=== PATIENT | male | born 1935 ===

== ENCOUNTER 2017-09-23 11:16 | Inpatient (IN) | payer OTHER ==
--- NOTE | 2017-09-23 12:21 | CARD ---
APPROVED REPORT EKG Measurement Heart [id number] <Conclusion> Sinus rhythm with premature supraventricular complexes Septal infarct, age undetermined Abnormal ECG
[2017-09-23 12:56] LABS: BASO % 0.5 % (0.0-2.0); EOS % 0.4 % (0.0-4.0); HEMOGLOBIN 13.6 g/dL (12.0-18.0); LYMPH # 0.9 K/uL (1.0-4.3); LYMPH % 10.4 % (20.0-40.0); MEAN CELL VOLUME 91.6 fl (80.0-94.0); MEAN CORPUSCULAR HEMOGLOBIN 30.7 pg (27.0-31.0); MEAN CORPUSCULAR HGB CONC 33.5 g/dL (33.0-37.0); MEAN PLATELET VOLUME 8.9 fl (7.2-11.7); MONO # 0.4 K/uL (0.0-0.8); MONO % 4.4 % (0.0-10.0); NEUT # 7.7 K/uL (1.8-7.0); NEUT % 84.3 % (50.0-75.0); RBC 4.43 Mil/uL (4.40-5.90); WHITE BLOOD COUNT 9.1 K/uL (4.8-10.8)
[2017-09-23 13:05] LABS: PARTIAL THROMBOPLASTIN TIME 27.5 Seconds (25.6-37.1)
--- NOTE | 2017-09-23 13:15 | RAD ---
PROCEDURE: CHEST RADIOGRAPH, 1 VIEW HISTORY: chest pain COMPARISON: None available. FINDINGS: LUNGS: Distended air-filled stomach with marked elevation left hemidiaphragm. There is left lower lobe atelectasis and or scarring changes. Mild right basilar atelectasis and/or scar. PLEURA: Questionable tiny left effusion. No evidence of pneumothorax. CARDIOVASCULAR: Heart appears enlarged. Aorta ectatic and uncoiled. OSSEOUS STRUCTURES: No significant abnormalities. VISUALIZED UPPER ABDOMEN: Normal. OTHER FINDINGS: None. IMPRESSION: Distended air-filled stomach with marked elevation left hemidiaphragm. There is left lower lobe atelectasis and or scarring changes. Mild right basilar atelectasis and/or scar.
[2017-09-23 13:42] LABS: CALCIUM 9.5 mg/dL (8.4-10.2)
[2017-09-23 14:01] LABS: TROPONIN I 0.266 ng/mL (0.00-0.120)
[2017-09-23] MEDS ORDERED: Iodixanol 320 MG/ML 100 ML BOTTLE IV ONE (15:14)
[2017-09-23] MEDS ORDERED: Sodium Chloride 0.9% 50 ML IV ONE (15:14)
--- NOTE | 2017-09-23 16:13 | CT ---
PROCEDURE: CT Chest with contrast (Pulmonary Angiogram) HISTORY: chest pain COMPARISON: None available. TECHNIQUE: Axial computed tomography images were obtained of the chest in the pulmonary arterial phase of enhancement. Coronal and sagittal reformatted images were created and reviewed. Intravenous contrast dose: Visipaque 320 Radiation dose: Total exam DLP = , 70 cc mGy-cm. This CT exam was performed using one or more of the following dose reduction techniques: Automated exposure control, adjustment of the mA and/or kV according to patient size, and/or use of iterative reconstruction technique. FINDINGS: PULMONARY ARTERIES: Unremarkable. No pulmonary embolism. AORTA: No acute findings. No thoracic aortic aneurysm. LUNGS: Questionable 5 mm nodule right upper lobe image 37 series 5. Restrained motion degrades imaging the pulmonary parenchyma significantly bilaterally. Linear atelectasis or fibrosis seen at the bilateral lung bases without alveolitis or central airway lesion grossly evident. PLEURAL SPACES: Unremarkable. No effusion or pneuomothorax. HEART: Stable cardiomegaly. No significant pericardial effusion. LYMPH NODES: No lymphadenopathy. BONES, CHEST WALL: Unremarkable. No fracture or destructive lesion OTHER FINDINGS: Cholelithiasis reiterated. Stable benign left adrenal adenoma 2.3 cm and -8 Hounsfield units. Stable right renal cyst. IMPRESSION: 1. No pulmonary embolus identified. 2. 5 mm noncalcified nodule suspected at the right upper lobe for which follow-up CT of the chest advised using low dose CT technique in 1 year. Lung rads 2. 3. Linear atelectasis bilateral lung bases versus fibrosis. 4. No acute infiltrate bilaterally. 5. Stable cardiomegaly. 6. Stable upper abdominal findings including cholelithiasis, benign left adrenal adenoma and stable right renal cyst.
[2017-09-23] MEDS ORDERED: Enoxaparin 80 mg Syringe SC STA (16:38)
--- NOTE | 2017-09-23 17:24 | CP.PCM.HP ---
History of Present Illness - History of Present Illness History of Present Illness: 82 yo male with history of DM2 and HTN brought in because of mid-sternal chest pain lasting for 2 hrs only relieved with IV Morphine when patient arrived in the ER. Patient recently arrived from [place] 2 weeks ago. Denied SOB, nausea, vomiting or fever/chills. Present on Admission - Present on Admission Any Indicators Present on Admission: No History of DVT/PE: No History of Uncontrolled Diabetes: No Urinary Catheter: No Decubitus Ulcer Present: No Review of Systems - Review of Systems All systems: reviewed and no additional remarkable complaints except (aside from those mentioned above, 12 points system review were negative by me) Past Patient History - Tetanus Immunizations Tetanus Immunization: Unknown - Past Social History Smoking Status: Never Smoked Chewing Tobacco Use: No Cigar Use: No Alcohol: None Drugs: Denies Home Situation {Lives}: With Family - CARDIAC Hx Hypertension: Yes - PULMONARY Hx Respiratory Disorders: No - NEUROLOGICAL Hx Neurological Disorder: No - HEENT Hx HEENT Problems: No - RENAL Hx Chronic Kidney Disease: No - ENDOCRINE/METABOLIC Hx Endocrine Disorders: Yes Hx Diabetes Mellitus Type 2: Yes - HEMATOLOGICAL/ONCOLOGICAL Hx Blood Disorders: No - INTEGUMENTARY Hx Dermatological Problems: No - MUSCULOSKELETAL/RHEUMATOLOGICAL Hx Musculoskeletal Disorders: No - GASTROINTESTINAL Hx Gastrointestinal Disorders: No - GENITOURINARY/GYNECOLOGICAL Hx Genitourinary Disorders: Yes - PSYCHIATRIC Hx Substance Use: No - SURGICAL HISTORY Hx Surgeries: Yes Hx Appendectomy: Yes - ANESTHESIA Hx Anesthesia: No Meds Allergies/Adverse Reactions: Allergies Allergy/AdvReac Type Severity Reaction Status Date / Time No Known Allergies Allergy Verified 09/23/17 11:30 Physical Exam - Constitutional Appears: No Acute Distress - Head Exam Head Exam: ATRAUMATIC - Eye Exam Eye Exam: absent: Scleral icterus - ENT Exam ENT Exam: Mucous Membranes Moist - Neck Exam Neck exam: Negative for: Meningismus - Respiratory Exam Respiratory Exam: absent: Rales, Rhonchi, Wheezes, Respiratory Distress - Cardiovascular Exam Cardiovascular Exam: REGULAR RHYTHM, +S1, +S2 - GI/Abdominal Exam GI & Abdominal Exam: Soft. absent: Tenderness - Rectal Exam Rectal Exam: Deferred - Extremities Exam Extremities exam: Negative for: calf tenderness, pedal edema - Back Exam Back exam: absent: tenderness - Neurological Exam Neurological exam: Alert, Oriented x3 - Psychiatric Exam Psychiatric exam: Normal Affect - Skin Skin Exam: Dry, Intact Results - Vital Signs Recent Vital Signs: Last Vital Signs Temp 98.4 F 09/23/17 11:31 Pulse 68 09/23/17 14:15 Resp 21 09/23/17 14:15 BP 126/69 09/23/17 14:15 Pulse Ox 98 09/23/17 14:15 - Labs Result Diagrams: 09/23/17 12:17 09/23/17 12:17 Labs: Laboratory Results - last 24 hr 09/23/17 09/23/17 09/23/17 12:17 12:17 12:17 WBC 9.1 RBC 4.43 Hgb 13.6 Hct 40.5 MCV 91.6 MCH 30.7 MCHC 33.5 RDW 14.0 Plt Count 206 MPV 8.9 Neut % (Auto) 84.3 H Lymph % (Auto) 10.4 L [place] % (Auto) 4.4 Eos % (Auto) 0.4 Baso % (Auto) 0.5 Neut # (Auto) 7.7 H Lymph # (Auto) 0.9 L [place] # (Auto) 0.4 Eos # (Auto) 0.0 Baso # (Auto) 0.0 PT 11.0 INR 1.0 APTT 27.5 D-Dimer, Quantitative 369 H Sodium 140 Potassium 4.2 Chloride 104 Carbon Dioxide 20 L Anion Gap 20 BUN 21 H Creatinine 1.4 Est GFR ( Amer) 59 Est GFR (Non-Af Amer) 48 Random Glucose 299 H Calcium 9.5 Troponin I 0.2660 H* Assessment & Plan - Assessment and Plan (Free Text) Assessment: 82 yo male with history of DM2 and HTN brought in because of mid-sternal chest pain lasting for 2 hrs only relieved with IV Morphine when patient arrived in the ER. Patient recently arrived from [place] 2 weeks ago. Denied SOB, nausea, vomiting or fever/chills. 1. NSTEMI EKG: septal infarct, undetermined age Troponins: 0.2660 serial Troponins q 8hrs x 2 Nitropaste 1 inch on CW q 6hrs Morphine 2mg IV q 4hrs prn for pain ASA 325mg PO Coreg 3.125mg PO q 12hrs Lipitor 40mg PO daily Lovenox 80mg SC q 12hrs 2. DM2 accuchek ACHS with Lispro coverage HgA1C, BMP in am diabetic diet 3. HTN BP stable on Coreg 3.125mg PO q 12hrs
--- NOTE | 2017-09-23 17:53 | ED PDOC ---
HPI: Chest Pain Time Seen by Provider: 09/23/17 11:34 Chief Complaint (Nursing): Chest Pain Chief Complaint (Provider): Chest Pain History Per: Patient History/Exam Limitations: no limitations Onset/Duration Of Symptoms: Days (x2 weeks), Intermittent Episodes Current Symptoms Are (Timing): Intermittent Episodes Additional Complaint(s): 82 year old male presents to the ED complaining of intermittent anterior chest pain onset two weeks ago associated with difficulty breathing on exertion. Of note, patient states he came from [place] for the first time two weeks ago as well. He reports that the intermittent episodes are sometimes related to food and sometimes related to exertion. Otherwise, denies any other complaints, fever , or cough. PMD: none provided Past Medical History Reviewed: Historical Data, Nursing Documentation, Vital Signs Vital Signs: Last Vital Signs Temp 98.2 F 09/24/17 08:00 Pulse 60 09/24/17 09:00 Resp 18 09/24/17 08:00 BP 105/63 09/24/17 08:58 Pulse Ox 98 09/24/17 08:00 - Medical History PMH: Benign Prostatic Hyperplasia, Diabetes, HTN Denies: Chronic Kidney Disease - Surgical History Surgical History: Appendectomy - Family History Family History: States: Unknown Family Hx - Social History Current smoker - smoking cessation education provided: No Alcohol: Social Drugs: Denies - Home Medications Home Medications: Ambulatory Orders Medication Instructions Recorded Losartan [Cozaar] 50 mg PO BID 09/23/17 metFORMIN [glucOPHAGE] 850 mg PO TID 09/23/17 - Allergies Allergies/Adverse Reactions: Allergies Allergy/AdvReac Type Severity Reaction Status Date / Time No Known Allergies Allergy Verified 09/23/17 11:30 CAROLINE Risk Score for UA/NSTEMI - CAROLINE Risk Score Age > 64: YES 3 or more CAD Risk Factors: YES Known CAD (Stenosis greater than 50%): NO Aspirin use in past 7 days: NO Severe Angina: NO EKG ST changes greater than 0.5mm: NO Positive Cardiac Marker: NO CAROLINE Score: 2 Risk %: 8% Wells Criteria for PE - Wells Criteria for Pulmonary Embolism Clinical Signs and Symptoms of DVT: No P.E is #1 Diagnosis, or Equally Likely: No Heart Rate >100: No Immobilization at least 3 days;Surgery previous 4 weeks: No Previous, objectively diagnosed PE or DVT: No Hemoptysis: No Malignancy w/treatment within 6 months, or palliative: No Total Score: 0 Review of Systems ROS Statement: Except As Marked, All Systems Reviewed And Found Negative Constitutional: Negative for: Fever Cardiovascular: Positive for: Chest Pain (anterior, intermittent) Respiratory: Positive for: SOB with Exertion. Negative for: Cough Physical Exam - Reviewed Nursing Documentation Reviewed: Yes Vital Signs Reviewed: Yes - Physical Exam Appears: Positive for: No Acute Distress Head Exam: Positive for: ATRAUMATIC, NORMOCEPHALIC Skin: Positive for: Normal Color, Warm, Dry Eye Exam: Positive for: Normal appearance, EOMI, PERRL ENT: Positive for: Normal ENT Inspection Neck: Positive for: Normal, Painless ROM, Supple Cardiovascular/Chest: Positive for: Regular Rate, Rhythm, Chest Non Tender. Negative for: Murmur Respiratory: Positive for: Normal Breath Sounds. Negative for: Accessory Muscle Use, Wheezing, Respiratory Distress Gastrointestinal/Abdominal: Positive for: Normal Exam, Soft. Negative for: Tenderness Back: Positive for: Normal Inspection. Negative for: L CVA Tenderness, R CVA Tenderness, Vertebral Tenderness Extremity: Positive for: Normal ROM Neurologic/Psych: Positive for: Alert, Oriented (x3). Negative for: Motor/ Sensory Deficits - Laboratory Results Result Diagrams: 09/24/17 04:20 09/24/17 04:20 - ECG ECG: Positive for: Interpreted By Me, Viewed By Me ECG Rhythm: Positive for: Sinus Rhythm (at 66). Negative for: Normal QRS, ST/T Changes Interpretation Of ECG: PACs are present O2 Sat by Pulse Oximetry: 95 (RA) Pulse Ox Interpretation: Normal Medical Decision Making Medical Decision Making: Initial Impression: chest pain Ddx: Acute coronary syndrome, pulmonary embolism Time: 12:17 Initial Plan: --Angio Chest PE CT --EKG --BMP --Trop I --CBC with differential --D Dimer --PT / PTT --CXR --Aspirin 325mg PO --Lovenox 80mg SC 16:[address] Chowdhury recommends lovenox. Patient will be admitted. Scribe Attestation: Documented by Loraine Fan, acting as a scribe for Dorita Saravia MD. Provider Scribe Attestation: All medical entries made by the Scribe were at my direction and personally dictated by me. I have reviewed the chart and agree that the record accurately reflects my personal performance of the history, physical exam, medical decision making, and the department course for this patient. I have also personally directed, reviewed, and agree with the discharge instructions and disposition. Disposition - Clinical Impression Clinical Impression: Chest pain, NSTEMI (non-ST elevated myocardial infarction) - Patient ED Disposition Is Patient to be Admitted: Yes Discussed With : Chapito Theodore Doctor Will See Patient In The: ED Counseled Patient/Family Regarding: Studies Performed, Diagnosis - Disposition Disposition Time: 16:00 Condition: FAIR - Pt Status Changed To: Hospital Disposition Of: Inpatient - Admit Certification Admit to Inpatient:: After my assessment, the patient will require hospitalization for at least two midnights. This is because of the severity of symptoms shown, intensity of services needed, and/or the medical risk in this patient being treated as an outpatient. - POA Present On Arrival: None Core Measure Indicators: Chest Pain
[2017-09-23] MEDS ORDERED: Nitroglycerin 2% Ointment Foilpak UD TOP STA (21:28)
[2017-09-23] MEDS ORDERED: Nitroglycerin 2% Ointment Foilpak UD TOP ONE (21:33)
[2017-09-23] MEDS: Insulin Lispro (humaLOG) 100 Units/ml Inj SC SCH (22:34)
[2017-09-23] MEDS: Enoxaparin 80 mg Syringe SC SCH (22:36)
[2017-09-24] MEDS: Enoxaparin 80 mg Syringe SC SCH (04:30)
[2017-09-24 05:33] LABS: BASO % 0.6 % (0.0-2.0); EOS # 0.1 K/uL (0.0-0.7); EOS % 1.3 % (0.0-4.0); HEMOGLOBIN 12.2 g/dL (12.0-18.0); LYMPH # 1.6 K/uL (1.0-4.3); LYMPH % 19.2 % (20.0-40.0); MEAN CELL VOLUME 90.7 fl (80.0-94.0); MEAN CORPUSCULAR HGB CONC 34.2 g/dL (33.0-37.0); MEAN PLATELET VOLUME 8.8 fl (7.2-11.7); MONO # 0.7 K/uL (0.0-0.8); MONO % 8.6 % (0.0-10.0); NEUT # 5.7 K/uL (1.8-7.0); NEUT % 70.3 % (50.0-75.0); NRBC % 0.1 % (0.0-0.0); RBC 3.93 Mil/uL (4.40-5.90); RED CELL DISTRIBUTION WIDTH 13.9 % (11.5-14.5); WHITE BLOOD COUNT 8.2 K/uL (4.8-10.8)
[2017-09-24 05:52] LABS: LDL CHOLESTEROL 94 mg/dL (0-129)
[2017-09-24 06:28] LABS: BLOOD UREA NITROGEN 19 mg/dl (9-20); GFR AFRICAN-AMERICAN > 60; GFR NON-AFRICAN AMERICAN 53
[2017-09-24 06:29] LABS: CALCIUM 9.1 mg/dL (8.4-10.2); HDL CHOLESTEROL 28 MG/DL (30-70)
[2017-09-24] MEDS: Insulin Lispro (humaLOG) 100 Units/ml Inj SC SCH ×2 (06:45→22:32)
[2017-09-24] MEDS: Pantoprazole 40 mg EC Tab PO SCH (08:59)
--- NOTE | 2017-09-24 11:02 | CARD ---
APPROVED REPORT EKG Measurement Heart [id number] <Conclusion> Normal sinus rhythm Low voltage QRS Cannot rule out Anteroseptal infarct, age undetermined T wave abnormality, consider lateral ischemia Abnormal ECG
--- NOTE | 2017-09-24 13:46 | CP.PCM.PN ---
Subjective - Date & Time of Evaluation Date of Evaluation: 09/24/17 Time of Evaluation: 11:00 - Subjective Subjective: Patient was seen and examined at bedside. He is complaining of 1-3 chest pain off and on again. The case was discussed with Dr. Jimenez this morning by myself. Overnight had a significant troponin elevation and is to be transferred to [facility] under Dr. Jimenez. Other than his chest pain, he denies any new problems. No SOB, headache, weakness, n/v/d. Objective - Vital Signs/Intake and Output Vital Signs (last 24 hours): Temp Pulse Resp BP Pulse Ox 98.2 F 60 18 105/63 98 09/24/17 08:00 09/24/17 09:00 09/24/17 08:00 09/24/17 08:58 09/24/17 08:00 - Medications Medications: Current Medications Aspirin (Aspirin) 325 mg PO DAILY [facility] Last Admin: 09/24/17 09:04 Dose: 325 mg Atorvastatin Calcium (Lipitor) 40 mg PO DAILY [facility] Last Admin: 09/24/17 08:59 Dose: 40 mg Carvedilol (Coreg) 3.125 mg PO Q12 [facility] Last Admin: 09/24/17 08:58 Dose: 3.125 mg Clopidogrel Bisulfate (Plavix) 75 mg PO DAILY [facility] Last Admin: 09/24/17 10:32 Dose: 75 mg Enoxaparin Sodium (Lovenox) 80 mg SC Q12@0500,1700 [facility] PRN Reason: Protocol Insulin Human Lispro (Humalog) 0 units SC ACHS [facility] PRN Reason: Protocol Last Admin: 09/24/17 06:45 Dose: 2 units Morphine Sulfate (Morphine) 2 mg IVP Q6 PRN PRN Reason: chest pain Nitroglycerin (Nitrostat Sl Tab) 0.4 mg SL Q5M PRN PRN Reason: chest pain Pantoprazole Sodium (Protonix Ec Tab) 40 mg PO DAILY [facility] Last Admin: 09/24/17 08:59 Dose: 40 mg - Labs Labs: 09/24/17 04:20 09/24/17 04:20 PT 11.0 Seconds (9.8-13.1) 09/23/17 12:17 INR 1.0 (0.9-1.2) 06/26/18 12:17 APTT 27.5 Seconds (25.6-37.1) 09/23/17 12:17 - Additional Findings Additional findings: Physical exam: Constitutional- cooperative, awake, alert Head- NCAT, PERRL Eye- PERRL, EOMI ENT- normal exam, MMM. Neck- normal inspection, supple, no JVD Respiratory- CTAB, no wheezes rales rhonchi Cardiovascular- RRR, +S1, +S2 no MRG GI/Abdominal- normal bowel sounds, soft, no mass, no hsm Skin- warm, dry Extremities Exam- normal capillary refill, normal inspection Neurological Exam- alert, awake, oriented Psych- normal mood, normal affect Assessment and Plan - Assessment and Plan (Free Text) Plan: 82 yo male with history of DM2 and HTN brought in because of mid-sternal chest pain lasting for 2 hrs only relieved with IV Morphine when patient arrived in the ER. Patient recently arrived from [place] 2 weeks ago. Denied SOB, nausea, vomiting or fever/chills. 1. NSTEMI, with significant troponin elevation and EKG changes (T wave inversions in lateral leads) EKG: septal infarct, undetermined age. Repeat EKG shows T wave inversions in lateral leads Cardiology consultation with Dr. Jimenez appreciated. Patient being transferred to [facility] today for cardiac catheterization. Troponins: 0.2660-> 90.0->49.6->32.9 Nitropaste 1 inch on CW q 6hrs Morphine 2mg IV q 4hrs prn for pain ASA 325mg PO Plavix 75 mg po daily Coreg 3.125mg PO q 12hrs Lipitor 40mg PO daily Lovenox 80mg SC q 12hrs 2. DM2 accuchek ACHS with Lispro coverage HgA1C, BMP in am diabetic diet 3. HTN BP stable on Coreg 3.125mg PO q 12hrs
[2017-09-24] MEDS ORDERED: Enoxaparin 80 mg Syringe SC SCH (17:00)
[2017-09-25] MEDS: Insulin Lispro (humaLOG) 100 Units/ml Inj SC SCH ×2 (06:53→12:49)
[2017-09-25 08:17] VITALS: O2SAT 95
[2017-09-25] MEDS: Pantoprazole 40 mg EC Tab PO SCH (09:10)
--- NOTE | 2017-09-25 10:46 | CP.PCM.PN ---
Objective - Vital Signs/Intake and Output Vital Signs (last 24 hours): Temp Pulse Resp BP Pulse Ox 98.2 F 66 18 107/64 95 09/25/17 09:00 09/25/17 09:11 09/25/17 09:00 09/25/17 09:11 09/25/17 09:00 - Medications Medications: Current Medications Aspirin (Aspirin) 325 mg PO DAILY [facility] Last Admin: 09/25/17 09:13 Dose: 325 mg Atorvastatin Calcium (Lipitor) 40 mg PO DAILY [facility] Last Admin: 09/25/17 09:10 Dose: 40 mg Carvedilol (Coreg) 3.125 mg PO Q12 [facility] Last Admin: 09/25/17 09:11 Dose: 3.125 mg Clopidogrel Bisulfate (Plavix) 75 mg PO DAILY [facility] Last Admin: 09/25/17 09:10 Dose: 75 mg Enoxaparin Sodium (Lovenox) 80 mg SC Q12@0500,1700 [facility] PRN Reason: Protocol Last Admin: 09/25/17 05:00 Dose: Not Given Insulin Human Lispro (Humalog) 0 units SC ACHS [facility] PRN Reason: Protocol Last Admin: 09/25/17 06:53 Dose: Not Given Morphine Sulfate (Morphine) 2 mg IVP Q6 PRN PRN Reason: chest pain Nitroglycerin (Nitrostat Sl Tab) 0.4 mg SL Q5M PRN PRN Reason: chest pain Pantoprazole Sodium (Protonix Ec Tab) 40 mg PO DAILY [facility] Last Admin: 09/25/17 09:10 Dose: 40 mg - Labs Labs: 09/24/17 04:20 09/24/17 04:20 PT 11.0 Seconds (9.8-13.1) 09/23/17 12:17 INR 1.0 (0.9-1.2) 09/23/17 12:17 APTT 27.5 Seconds (25.6-37.1) 09/23/17 12:17
--- NOTE | 2017-09-25 11:38 | CP.PCM.DIS ---
Provider - Provider Date of Admission: 09/23/17 16:29 Attending physician: Chapito Theodore MD Time Spent in preparation of Discharge (in minutes): 30 Diagnosis - Discharge Diagnosis (1) Chest pain Status: Resolved (2) NSTEMI (non-ST elevated myocardial infarction) Status: Acute (3) S/P drug eluting coronary stent placement Status: Acute (4) Coronary artery disease Status: Acute Hospital Course - Lab Results Lab Results: Most Recent Lab Values WBC 8.2 K/uL (4.8-10.8) 09/24/17 04:20 RBC 3.93 Mil/uL (4.40-5.90) L 09/24/17 04:20 Hgb 12.2 g/dL (12.0-18.0) 09/24/17 04:20 Hct 35.6 % (35.0-51.0) 09/24/17 04:20 MCV 90.7 fl (80.0-94.0) 09/24/17 04:20 MCH 31.0 pg (27.0-31.0) 09/24/17 04:20 MCHC 34.2 g/dL (33.0-37.0) 09/24/17 04:20 RDW 13.9 % (11.5-14.5) 09/24/17 04:20 Plt Count 193 K/uL (130-400) 09/24/17 04:20 MPV 8.8 fl (7.2-11.7) 09/24/17 04:20 Neut % (Auto) 70.3 % (50.0-75.0) 09/24/17 04:20 Lymph % (Auto) 19.2 % (20.0-40.0) L 09/24/17 04:20 [place] % (Auto) 8.6 % (0.0-10.0) 09/24/17 04:20 Eos % (Auto) 1.3 % (0.0-4.0) 09/24/17 04:20 Baso % (Auto) 0.6 % (0.0-2.0) 09/24/17 04:20 Neut # (Auto) 5.7 K/uL (1.8-7.0) 09/24/17 04:20 Lymph # (Auto) 1.6 K/uL (1.0-4.3) 09/24/17 04:20 [place] # (Auto) 0.7 K/uL (0.0-0.8) 09/24/17 04:20 Eos # (Auto) 0.1 K/uL (0.0-0.7) 09/24/17 04:20 Baso # (Auto) 0.0 K/uL (0.0-0.2) 09/24/17 04:20 PT 11.0 Seconds (9.8-13.1) 09/23/17 12:17 INR 1.0 (0.9-1.2) 09/23/17 12:17 APTT 27.5 Seconds (25.6-37.1) 09/23/17 12:17 D-Dimer, Quantitative 369 ng/mlDDU (0-230) H 09/23/17 12:17 Sodium 140 mmol/l (132-148) 09/24/17 04:20 Potassium 4.8 MMOL/L (3.6-5.0) 09/24/17 04:20 Chloride 103 mmol/L (98-107) 09/24/17 04:20 Carbon Dioxide 27 mmol/L (22-30) 09/24/17 04:20 Anion Gap 15 (10-20) 09/24/17 04:20 BUN 19 mg/dl (9-20) 09/24/17 04:20 Creatinine 1.3 mg/dl (0.8-1.5) 09/24/17 04:20 Est GFR ( Amer) > 60 09/24/17 04:20 Est GFR (Non-Af Amer) 53 09/24/17 04:20 POC Glucose (mg/dL) 244 mg/dL (65-110) H 09/25/17 11:07 Random Glucose 149 mg/dL (75-110) H 09/24/17 04:20 Hemoglobin A1c 8.2 % (4.2-6.5) H 09/24/17 04:20 Calcium 9.1 mg/dL (8.4-10.2) 09/24/17 04:20 Troponin I 32.9000 ng/mL (0.00-0.120) H* 09/24/17 10:21 Triglycerides 153 mg/DL (0-149) H 09/24/17 04:20 Cholesterol 154 mg/dL (0-199) 09/24/17 04:20 LDL Cholesterol Direct 94 mg/dL (0-129) 09/24/17 04:20 HDL Cholesterol 28 MG/DL (30-70) L 09/24/17 04:20 TSH 3rd Generation 2.02 mIU/ML (0.46-4.68) 09/24/17 04:20 - Hospital Course Hospital Course: 82 year old male who recently come from [place] 2 weeks ago with pmhx of DMII and HTN presents to the ED on 09/23/17 with complaining of intermittent anterior chest pain onset two weeks ago associated with difficulty breathing on exertion. He reports that the intermittent episodes are sometimes related to food and sometimes related to exertion. Otherwise, denies any other complaints, fever, or cough. Pt was admitted on 09/23/17 for evaluation of chest pain. Initial EKG showed septal infarct, undetermined age. Repeat EKG shows T wave inversions in lateral leads. Overnight, pt's troponin levels were elevated. Troponin levels were as followed: Troponins: 0.2660-> 90.0->49.6->32.9. 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 Patient was trasferred yesterday at [facility] for cardiac cath. 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 This morning, patient reports feeling well. Denies any chest pain, dyspnea, nausea, vomiting or dizziness. Denies any swelling or redness in the catheter insertion site. Patient is medically stable to discharge home. Advised to follow up at [facility] in 1 week. Medications on discharge. Aspirin 81 mg PO DAILY #30 tab Atorvastatin [Lipitor] 40 mg PO DAILY #30 tab Carvedilol [Coreg] 3.125 mg PO Q12 #60 tab Clopidogrel [Plavix] 75 mg PO DAILY #30 tab metFORMIN [glucOPHAGE] 850 mg PO TID #90 tab Discharge Exam - Head Exam Head Exam: ATRAUMATIC, NORMAL INSPECTION, NORMOCEPHALIC - Eye Exam Eye Exam: EOMI, Normal appearance - ENT Exam ENT Exam: Mucous Membranes Moist, Normal Oropharynx - Respiratory Exam Respiratory Exam: Clear to PA & Lateral, NORMAL BREATHING PATTERN. absent: Rales, Rhonchi, Wheezes - Cardiovascular Exam Cardiovascular Exam: REGULAR RHYTHM, RRR, +S1, +S2 - GI/Abdominal Exam GI & Abdominal Exam: Normal Bowel Sounds, Soft. absent: Tenderness - Extremities Exam Additional comments: Catheter insertion site at the right inguinal area looks C/D/I. No swelling or ecchymosis seen. - Neurological Exam Neurological exam: Alert, Oriented x3 - Psychiatric Exam Psychiatric exam: Normal Affect, Normal Mood - Skin Skin Exam: Normal Color, Warm Discharge Plan - Discharge Medications Prescriptions: Aspirin 81 mg PO DAILY #30 tab Atorvastatin [Lipitor] 40 mg PO DAILY #30 tab Carvedilol [Coreg] 3.125 mg PO Q12 #60 tab Clopidogrel [Plavix] 75 mg PO DAILY #30 tab metFORMIN [glucOPHAGE] 850 mg PO TID #90 tab - Follow Up Plan Condition: FAIR Disposition: HOME/ ROUTINE Additional Instructions: follow up center for [facility] ONE WEEK. follow up Cardiology Clinic also ONE WEEK. Referrals: [facility] [Provider Group]
[2017-09-25 12:27] VITALS: BP 96/63; PULSE 63; RESP 20; TEMP 98.8
[2017-09-25 13:23] LABS: BLOOD UREA NITROGEN 17 mg/dl (9-20); CALCIUM 8.5 mg/dL (8.4-10.2); GFR AFRICAN-AMERICAN > 60; GFR NON-AFRICAN AMERICAN 58
--- NOTE | 2017-09-25 13:56 | CARD ---
APPROVED REPORT EXAM: Two-dimensional and M-mode echocardiogram with Doppler and color Doppler. Other Information Quality : GoodRhythm : NSR INDICATION ICD: WI 2D DIMENSIONS IVSd0.87 (0.7-1.1cm)LVDd4.87 (3.9-5.9cm) LVOT Diameter2.54 (1.8-2.4cm)PWd0.61 (0.7-1.1cm) IVSs1.00 (0.8-1.2cm)LVDs3.67 (2.5-4.0cm) FS (%) 24.6 %PWs1.28 (0.8-1.2cm) M-Mode DIMENSIONS Left Atrium (MM)3.85 (2.5-4.0cm)IVSd1.12 (0.7-1.1cm) Aortic Root3.56 (2.2-3.7cm)LVDd5.79 (4.0-5.6cm) Aortic Cusp Exc.1.94 (1.5-2.0cm)PWd0.71 (0.7-1.1cm) IVSs0.94 cmFS (%) 24 % LVDs4.41 (2.0-3.8cm)PWs1.74 cm Mitral Valve MV E Qkxjripg31.0cm/sMV DECEL [id number] A Rszradox01.9cm/s MV [id number]/A ratio0.9MVA (PHT)3.27cm2 TDI Lateral E' Peak V4.97cm/sMedial E' Peak V6.76cm/sE/Lateral E'11.5 E/Medial E'8.4 Pulmonary Valve PV Peak Dwgmuryr63.2cm/s Tricuspid Valve TR Peak [id number]/sRAP [id number] Peak Gr.29mmHg [id number] LEFT VENTRICLE The left ventricle is normal size. There is normal left ventricular wall thickness. The left ventricular function is normal. The left ventricular ejection fraction is within the normal range. The Ejection Fraction is 45-50%. There is normal LV segmental wall motion. The left ventricular diastolic function is normal. RIGHT VENTRICLE The right ventricle is normal size. The right ventricular systolic function is normal. ATRIA The left atrium size is normal. The right atrium size is normal. AORTIC VALVE The aortic valve is normal in structure. No aortic regurgitation is present. There is no aortic valvular stenosis. MITRAL VALVE The mitral valve is normal in structure. There is no mitral valve stenosis. There is no mitral valve regurgitation noted. TRICUSPID VALVE The tricuspid valve is normal in structure. There is no tricuspid valve regurgitation noted. PULMONIC VALVE The pulmonary valve is normal in structure. There is no pulmonic valvular regurgitation. GREAT VESSELS The aortic root is normal in size. The IVC is normal in size and collapses >50% with inspiration. PERICARDIAL EFFUSION The pericardium appears normal. <Conclusion> The left ventricle is normal size. The left ventricular function is normal. The left ventricular ejection fraction is within the normal range. The Ejection Fraction is 45-50%.
--- NOTE | 2017-09-25 21:57 | CON ---
DATE: 09/25/2017 CARDIOLOGY CONSULTATION HISTORY OF PRESENT ILLNESS: The patient is an 82-year-old male, originally from [place] who lives with his son. He presented two days ago to [facility] with chest pain. Acute myocardial infarction was ruled in and the patient was transferred yesterday on urgent basis to [facility]. 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 The patient underwent drug eluting stent by Dr. Giang and was transferred back to [facility]. The patient denies any chest pain or at this time. SOCIAL HISTORY: Nonsmoker. He lives with his son. MEDICATIONS: Aspirin 325 mg once a day, Coreg 3.125 mg twice a day, Lipitor 40 mg once a day, Plavix 75 mg once a day. REVIEW OF SYSTEMS: No recurrent bleeding. No recurrence of chest pain. No diaphoresis. PHYSICAL EXAMINATION: GENERAL: The patient is an elderly male who does not appear to be in acute distress. VITAL SIGNS: Blood pressure 103/64, heart rate 66, temperature 98.2, and respirations 18. HEENT: Normocephalic. CHEST: Clear. HEART: S1 and S2 regular. ABDOMEN: Soft. EXTREMITIES: No hematoma and 1+ dorsalis pedis pulse. LABORATORY DATA: Yesterday's hemoglobin, hematocrit, white count, and platelet count are within normal limits. Yesterday's SMA-7 is within normal limit except for glucose of 149. Review of the EKG, initial one revealed sinus rhythm with septal infarct of indeterminate age and second one on the revealed recent acute myocardial infarction. ASSESSMENT: 1. 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 2. Uncontrolled diabetes mellitus. RECOMMENDATIONS: Obtain an echocardiogram. Continue current aspirin, Coreg, Plavix, and Lipitor. The patient and the son at the bedside were instructed via souvenir assembler who have been to be , the patient has to be on medical management including aspirin and Plavix for one full year at least, and on aspirin indefinitely after that. The patient has no insurance and the son was instructed to make sure that the aspirin and Plavix are supplied to his father even with manning payment if necessary. I instructed the reason to obtain one months supply of medications for the patient prior to his discharge. Rory Jimenez MD Psychiatric # [id number]
== END 2017-09-25 13:30 | disposition home or self-care (01) | DRG 853 ==
LOC: H.ER 11:16 → H.ERHOLD 16:29 → H.TEL 18:37
PROC: 0270356 Dilation of Coronary Artery, One Artery, Bifurcation, with Two Drug-eluting Intraluminal Devices, Percutaneous Approach (ICD-10-PCS; principal; 2017-09-24)
PROC: B216YZZ Fluoroscopy of Right and Left Heart using Other Contrast (ICD-10-PCS; 2017-09-24)
DX: I21.4 Non-ST elevation (NSTEMI) myocardial infarction (principal); E11.65 Type 2 diabetes mellitus with hyperglycemia; I25.10 Atherosclerotic heart disease of native coronary artery without angina pectoris; I10 Essential (primary) hypertension; N40.0 Benign prostatic hyperplasia without lower urinary tract symptoms